=== PATIENT | female | born 1970 | race Caucasian/White ===

== ENCOUNTER 2016-07-15 01:30 | Emergency (ER) | payer OTHER ==
[2016-07-15 01:56] LABS: BASOPHIL 0.3 % (0-2); EOSINOPHIL 1.8 % (0-5); HCT 38.4 % (37.0-47.0); HGB 12.8 g/dl (12.5-16.0); LYMPHOCYTE 36.3 % (15-48); MCH 30.8 pg (25.0-31.0); MCHC 33.3 g/dL (32.0-36.0); MCV 92.5 fL (78.0-100.0); MONOCYTE 11.1 % (0-12); MPV 9.2 fL (6.0-9.5); NEUTROPHIL 50.5 % (41-80); PLT 332 K/uL (150-400); RBC 4.15 M/uL (4.20-5.40); RDW 15.1 % (11.5-14.0); WBC 11.5 K/uL (4.0-10.5)
[2016-07-15 02:01] LABS: INR 0.95 (0.9-1.2); PROTHROMBIN TIME 12.3 SECONDS (11.7-14.0)
[2016-07-15 02:02] LABS: PTT 36.5 SECONDS (23.2-31.4)
[2016-07-15 02:18] LABS: CKMB 2.07 ng/mL (0.97-4.94); MYOGLOBIN 21 ng/mL (26-65); PRO-BNP 60 pg/mL (0-125); TROPONIN T < 0.010 ng/mL
[2016-07-15 02:19] LABS: ALBUMIN 4.2 g/dL (3.5-5.0); BILIRUBIN - TOTAL 0.2 mg/dL (0.1-1.0); CREATININE 0.7 mg/dL (0.5-1.0); GLOBULIN (CALCULATION) 3.1 g/dL (2.2-4.2); MAGNESIUM 2.16 mg/dL (1.40-2.10); TOTAL PROTEIN 7.3 g/dL (6.4-8.3)
[2016-07-15 03:02] LABS: AMPHETAMINES NEGATIVE (NEGATIVE); BARBITURATES NEGATIVE (NEGATIVE); BENZODIAZEPINES NEGATIVE (NEGATIVE); COCAINE NEGATIVE (NEGATIVE); MARIJUANA (THC) NEGATIVE (NEGATIVE); METHADONE NEGATIVE (NEGATIVE); TRICYCLIC ANTIDEPRESSANT NEGATIVE (NEGATIVE)
== END 2016-07-15 06:20 | disposition home or self-care (01) ==
LOC: FER 01:30
PROVIDERS: Internal Medicine
DX: K21.9 Gastro-esophageal reflux disease without esophagitis (principal); E87.6 Hypokalemia; R06.02 Shortness of breath; I10 Essential (primary) hypertension; F17.200 Nicotine dependence, unspecified, uncomplicated; Z79.899 Other long term (current) drug therapy
CPT/HCPCS: 36415; 71010; 80053; 80305; 82550; 82553; 83690; 83735; 83874; 83880; 84484; 85025; 85610; 85730; 93005; C9113

== ENCOUNTER 2020-09-07 17:52 | Emergency (ER) | payer OTHER ==
[~2020-09-07 17:52] MED LIST: ACETAMINOPHEN500 M1 PO; FLONASE ALLER15.8 ML; HCTZ25 MG PO; IBUPROFEN800 MG PO; LIPITOR 10MG TA10 MG PO; METOPROLOL SUC100 MG PO; ZYRTEC10 M3 PO
[2020-09-07 19:21] LABS: BASOPHIL 0.7 % (0-2); HCT 44.5 % (37.0-47.0); HGB 16.4 g/dl (12.5-16.0); LYMPHOCYTE 54.1 % (15-48); MCH 33.3 pg (25.0-31.0); MCHC 36.9 g/dL (32.0-36.0); MCV 90.4 fL (78.0-100.0); MONOCYTE 6.7 % (0-12); MPV 9.5 fL (6.0-9.5); NEUTROPHIL 37.3 % (41-80); NRBC 0; PLT 331 K/uL (150-400); RBC 4.92 M/uL (4.20-5.40); RDW 13.9 % (11.5-14.0); WBC 8.2 K/uL (4.0-10.5)
[2020-09-07 19:26] LABS: INR 0.97 (0.9-1.2); PROTHROMBIN TIME 12.2 SECONDS (11.4-13.6)
[2020-09-07 19:30] LABS: AMPHETAMINES NEGATIVE (NEGATIVE); BARBITURATES NEGATIVE (NEGATIVE); ECSTASY (MDMA) NEGATIVE (NEGATIVE); MARIJUANA (THC) NEGATIVE (NEGATIVE); METHADONE NEGATIVE (NEGATIVE); OPIATES NEGATIVE (NEGATIVE); OXYCODONE NEGATIVE (NEGATIVE)
[2020-09-07 19:33] LABS: ALBUMIN 3.9 g/dL (3.4-5.0); BILIRUBIN - TOTAL 0.5 mg/dL (0.2-1.0); BUN/CREAT RATIO (CALC) 19.4 RATIO; CREATININE 0.62 mg/dL (0.51-0.95); GLOBULIN (CALCULATION) 4.3 g/dL; TOTAL PROTEIN 8.2 g/dL (6.4-8.2)
== END 2020-09-07 21:18 | disposition home or self-care (01) ==
LOC: FER 17:52
PROVIDERS: Emergency Medicine
DX: R07.89 Other chest pain (principal); F41.9 Anxiety disorder, unspecified; F10.10 Alcohol abuse, uncomplicated; I10 Essential (primary) hypertension; F17.210 Nicotine dependence, cigarettes, uncomplicated; Z79.899 Other long term (current) drug therapy; Y90.8 Blood alcohol level of 240 mg/100 ml or more
CPT/HCPCS: 36415; 71045; 80053; 80305; 84484; 85025; 85610; 85730; 93005; G0480; J3411; J7030

== ENCOUNTER 2021-08-16 16:09 | Emergency (ER) | payer OTHER ==
[2021-08-16 17:16] LABS: BASOPHIL 0.6 % (0-2); EOSINOPHIL 0.6 % (0-5); HCT 47.4 % (37.0-47.0); HGB 17.1 g/dl (12.5-16.0); LYMPHOCYTE 51.6 % (15-48); MCH 32.9 pg (25.0-31.0); MCHC 36.1 g/dL (32.0-36.0); MCV 91.3 fL (78.0-100.0); MONOCYTE 4.4 % (0-12); MPV 8.9 fL (6.0-9.5); NEUTROPHIL 42.7 % (41-80); NRBC 0; PLT 347 K/uL (150-400); RBC 5.19 M/uL (4.20-5.40); RDW 12.3 % (11.5-14.0); WBC 10.4 K/uL (4.0-10.5)
[2021-08-16 17:19] LABS: BILIRUBIN NEGATIVE (NEGATIVE); BLOOD 2+ Ery/uL (NEGATIVE); CLARITY CLEAR (CLEAR); COLOR YELLOW (YELLOW); GLUCOSE (U) NORMAL (NORMAL); LEUKOCYTES TRACE Leu/uL (NEGATIVE); NITRITE NEGATIVE (NEGATIVE); PROTEIN NEGATIVE (NEGATIVE); UROBILINOGEN 0.2 mg/dL (0.2-1.0)
[2021-08-16 17:21] LABS: AMPHETAMINES NEGATIVE (NEGATIVE); BARBITURATES NEGATIVE (NEGATIVE); ECSTASY (MDMA) NEGATIVE (NEGATIVE); MARIJUANA (THC) NEGATIVE (NEGATIVE); METHADONE NEGATIVE (NEGATIVE); OPIATES NEGATIVE (NEGATIVE); OXYCODONE NEGATIVE (NEGATIVE)
[2021-08-16 17:30] LABS: ACETAMINOPHEN (TYLENOL) < 2.0 ug/mL (10.0-30.0); BUN 13 mg/dL (7-18); CHLORIDE 101 mmol/L (98-107); CO2 (BICARBONATE) 22 mmol/L (21-32); CREATININE 0.62 mg/dL (0.51-0.95); GLUCOSE 102 mg/dL (74-106); POTASSIUM 3.7 mmol/L (3.5-5.1)
[2021-08-16 17:33] LABS: URINARY RBC RARE; URINARY WBC RARE
== END 2021-08-17 00:22 ==
LOC: FER 16:09
PROVIDERS: Emergency Medicine
DX: R45.851 Suicidal ideations (principal); I10 Essential (primary) hypertension; F17.200 Nicotine dependence, unspecified, uncomplicated; F10.20 Alcohol dependence, uncomplicated; Y90.8 Blood alcohol level of 240 mg/100 ml or more; Z20.822 Contact with and (suspected) exposure to COVID-19
CPT/HCPCS: 36415; 80048; 80305; 81001; 84484; 85025; 93005; G0480; J3411; J3475; J7120; U0002

== ENCOUNTER 2022-01-25 15:45 | Emergency (ER) | payer OTHER ==
[2022-01-25 17:55] LABS: BASOPHIL 0.8 % (0-2); EOSINOPHIL 0.6 % (0-5); HGB 15.6 g/dl (12.5-16.0); LYMPHOCYTE 39.4 % (15-48); MCH 33.1 pg (25.0-31.0); MCHC 36.3 g/dL (32.0-36.0); MCV 91.1 fL (78.0-100.0); NEUTROPHIL 53.9 % (41-80); NRBC 0; PLT 390 K/uL (150-400); RBC 4.72 M/uL (4.20-5.40); RDW 12.1 % (11.5-14.0); WBC 10.7 K/uL (4.0-10.5)
[2022-01-25 17:58] LABS: BILIRUBIN NEGATIVE (NEGATIVE); BLOOD 2+ Ery/uL (NEGATIVE); CLARITY CLEAR (CLEAR); COLOR YELLOW (YELLOW); GLUCOSE (U) NORMAL (NORMAL); LEUKOCYTES NEGATIVE Leu/uL (NEGATIVE); NITRITE NEGATIVE (NEGATIVE); PROTEIN NEGATIVE (NEGATIVE); SPECIFIC GRAVITY <=1.005 (1.001-1.030); UROBILINOGEN 0.2 mg/dL (0.2-1.0)
[2022-01-25 18:02] LABS: AMPHETAMINES NEGATIVE (NEGATIVE); BARBITURATES NEGATIVE (NEGATIVE); ECSTASY (MDMA) NEGATIVE (NEGATIVE); MARIJUANA (THC) NEGATIVE (NEGATIVE); METHADONE NEGATIVE (NEGATIVE); OPIATES NEGATIVE (NEGATIVE); OXYCODONE NEGATIVE (NEGATIVE)
[2022-01-25 18:19] LABS: BACTERIA TRACE; URINARY WBC RARE
[2022-01-25 18:20] LABS: BILIRUBIN - TOTAL 0.4 mg/dL (0.2-1.0); BUN/CREAT RATIO (CALC) 24.1 RATIO; CREATININE 0.54 mg/dL (0.51-0.95); GLOBULIN (CALCULATION) 3.9 g/dL; POTASSIUM 3.4 mmol/L (3.5-5.1); TOTAL PROTEIN 7.9 g/dL (6.4-8.2)
== END 2022-01-26 05:18 | disposition home or self-care (01) ==
LOC: FER 15:45
PROVIDERS: Emergency Medicine
DX: F10.10 Alcohol abuse, uncomplicated (principal); R00.0 Tachycardia, unspecified; R07.9 Chest pain, unspecified; I10 Essential (primary) hypertension; F17.200 Nicotine dependence, unspecified, uncomplicated; Z79.899 Other long term (current) drug therapy; Y90.7 Blood alcohol level of 200-239 mg/100 ml
CPT/HCPCS: 36415; 71045; 80053; 80305; 81001; 84484; 85025; 93005; G0480; J1885; J2060; J2405; J3411; J3475; J7120